=== PATIENT | female | born 1960 | race Caucasian/White ===

== ENCOUNTER 2018-02-28 13:10 | Emergency (ER) | payer OTHER ==
[~2018-02-28] VITALS: Ht 177.8 cm; Wt 93.4 kg
[2018-02-28] MEDS ORDERED: VITAMIN D31000 UNI1 PO (13:22)
[2018-02-28] MEDS ORDERED: ASPIRIN325 M2 PO (13:22)
[2018-02-28] MEDS ORDERED: MULTIVITAMINS1 EAC9 PO (13:22)
[2018-02-28] MEDS ORDERED: CO Q-10400 MG PO (13:22)
--- NOTE | 2018-02-28 13:31 | ED GI/GU/ABDOMINAL COMPLAINT ---
History of Present Illness General Chief Complaint: General Adult Stated Complaint: POSSIBLE KIDNEY STONE W/ PAST HX OF Source: patient, old records Exam Limitations: no limitations Vital Signs & Intake/Output Vital Signs & Intake/Output Vital Signs Date Time Temp Pulse Resp B/P B/P Pulse O2 O2 Flow FiO2 Mean Ox Delivery Rate 02/28 1313 98.2 61 18 142/71 100 Room Air Allergies Coded Allergies: Penicillins (RASH 02/28/18) Reconcile Medications Aspirin (Aspirin*) 325 MG TABLET 1 TAB PO DAILY HEART/BLOOD (Reported) Cholecalciferol (Vitamin D3) (Vitamin D3) (Unknown Strength) CAPSULE (Unknown Dose) PO DAILY SUPPLEMENT (Reported) Ciprofloxacin HCl 500 MG TABLET 1 TAB PO BID UTI Multiple Vitamin (Multivitamins) 1 EACH TABLET 1 TAB PO DAILY SUPPLEMENT ( Reported) Tramadol HCl 50 MG TABLET 1 TAB PO Q6P PRN KIDNEY STONE Ubidecarenone (Co Q-10) 400 MG CAPSULE 1 CAP PO DAILY SUPPLEMENT (Reported) Triage Note: PT STATES SHE THINKS SHE HAS A KIDNEY STONE ON HER LEFT SIDE. PT REPORTS PAIN IN LEFT FLANK THAT RADIATES INTO THE FRONT. PT STATES THE PAIN BEGAN 3 HOURS AGO. PT STATES SHE HAD DYSURIA 4 WEEKS AGO BUT BEGAN TO DRINK CRANBERRY JUICE AND LOTS OF FLUIDS. 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 yes ? N Is pt currently ? No HPI: 57F PMH HLD, recurrent nephrolithiasis requiring lithotrypsy presents with 4 hours of left sided flank pain and left groin pain consistent with prior episodes of nephrolithiasis. Has had a 3 week history of mild dysuria, treated with cranberry juice. She had E.coli urosepsis several months ago. She has vomited once this morning and is nauseous. She has had intermittent chills but no fever. She has dysuria without hematuria. She denies headache, confusion, sore throat, chest pain, SOB, abdominal pain, diarrhea. Past History Travel History Traveled to [place] past 21 day No Medical History Any Pertinent Medical History? see below for history Cardiovascular: PROLAPSE MITRO VALUVE Renal: KIDNEY STONES Surgical History Surgical History: non-contributory Psychosocial History What is your primary language Yoruba Tobacco Use: Never used ETOH Use: denies use Illicit Drug Use: denies illicit drug use Family History Hx Contributory? No Review of Systems Review of Systems Constitutional: Reports: no symptoms. EENTM: Reports: no symptoms. Respiratory: Reports: no symptoms. Cardiovascular: Reports: no symptoms. GI: Reports: no symptoms. Genitourinary: Reports: no symptoms. Musculoskeletal: Reports: no symptoms. Skin: Reports: no symptoms. Neurological/Psychological: Reports: no symptoms. Hematologic/Endocrine: Reports: no symptoms. Immunologic/Allergic: Reports: no symptoms. All Other Systems: Reviewed and Negative Physical Exam Physical Exam General Appearance: well developed/nourished, mild distress Head: atraumatic, normal appearance Eyes: Bilateral: normal appearance. Ears, Nose, Throat, Mouth: hearing grossly normal, moist mucous membrane Neck: normal inspection, supple, full range of motion Respiratory: normal breath sounds, chest non-tender, no respiratory distress Cardiovascular: regular rate/rhythm Gastrointestinal: soft, non-tender Back: normal inspection, normal range of motion Extremities: normal range of motion Neurologic/Psych: awake, alert, oriented x 3, normal mood/affect Skin: intact, normal color, warm/dry Core Measures ACS in differential dx? No Sepsis Present: No Sepsis Focused Exam Completed? No Progress Differential Diagnosis: appendicitis, biliary colic, diverticulitis, ectopic , hernia, kidney stone, ovarian cyst, UTI/pyelo Plan of Care: Orders Procedure Date/time Status CULTURE,URINE 02/28 1322 Active URINALYSIS 02/28 1319 Active COMPREHENSIVE METABOLIC PANEL 02/28 1319 Complete CBC WITHOUT DIFFERENTIAL 02/28 1319 Complete Laboratory Tests 02/28/18 1546: Urine Color Pending, Urine Clarity Pending, Urine pH Pending, Ur Specific [place] Pending, Urine Protein Pending, Urine Ketones Pending, Urine Nitrite Pending, Urine Bilirubin Pending, Urine Urobilinogen Pending, Ur Leukocyte Esterase Pending, Ur Microscopic Pending, Urine Hemoglobin Pending, Urine Glucose Pending 02/28/18 1421: Anion Gap 13, Estimated GFR 57 L, BUN/Creatinine Ratio 19.0, Glucose 109 H, Calcium 10.0, Total Bilirubin 0.3, AST 30, ALT 43, Alkaline Phosphatase 99, Total Protein 6.5, Albumin 3.6, Globulin 2.9, Albumin/Globulin Ratio 1.2, CBC w Diff NO MAN DIFF REQ, RBC 4.51, MCV 91.4, MCH 29.9, MCHC 32.8 L, RDW 13.4, MPV 8.3, Gran % 80.4 H, Lymphocytes % 12.9 L, Monocytes % 5.3, Eosinophils % 1.0, Basophils % 0.4, Absolute Granulocytes 6.0, Absolute Lymphocytes 1.0 L, Absolute Monocytes 0.4, Absolute Eosinophils 0.1, Absolute Basophils 0 Microbiology 02/28 1546 URINE ROUT: Urine Culture - RECD Spoke with Dr. Jonas of urology. Patient will require lithotrypsy, and can be done as outpatient. Patient is exhibiting no signs of sepsis or systemic infection. CT does not show pyelonephritis. Patient lives in [place], has a flight Friday, and would prefer to get the procedure done with her urologist at home. Will discharge on Cipro and Tramadol (patient preference). Diagnostic Imaging: Viewed by Me: CT Scan. Discussed w/RAD: CT Scan. Radiology Impression: PATIENT: ENOCH MEJIA PRESENT AGE: 57 PATIENT ACCOUNT NO: [id number] : 58 LOCATION: [facility] ORDERING PHYSICIAN: Edith Mills MD SERVICE DATE: 02/28/18 EXAM TYPE: CAT - CT ABD & PELVIS W/O IV CONTRAS EXAMINATION: CT ABDOMEN AND PELVIS WITHOUT CONTRAST CLINICAL INFORMATION: Left flank and groin pain with dysuria and chills. COMPARISON: None TECHNIQUE: Multidetector volumetric imaging was performed from the superior aspect of the liver through the pubic symphysis. Sagittal and coronal reformatted images were obtained on the technologist's workstation. DLP: 655.30 mGy-cm FINDINGS: LUNG BASES: Presumed pleural parenchymal scar-related changes are noted within the lingular segment of the left upper lobe. LIVER, GALLBLADDER, AND BILIARY TREE: The liver is normal in size, shape, and attenuation. No focal hepatic lesion or biliary ductal dilatation is present. The gallbladder is unremarkable with no evidence of radiopaque gallstones, gallbladder wall thickening, or obvious pericholecystic inflammatory changes. PANCREAS: Unremarkable. SPLEEN: Unremarkable. ADRENAL GLANDS: Unremarkable. KIDNEYS AND URETERS: There is a 0.6 cm maximum dimension radiopaque calculus identified within the left mid ureter at the level of mid part of L4 vertebral body with Hounsfield value of 223, producing obstruction to the left mid ureter and proximal at least moderate hydroureteronephrosis. There are multiple bilateral nonobstructing radiopaque renal calculi present, measures between 1 to 2 mm on the right, seen at superior, mid and inferior calyces on the right and measures between 2 to 3 mm, at least 3 are present within the inferior calyx on the left. BLADDER: Unremarkable. GASTROINTESTINAL TRACT: The small and large bowel are unremarkable. The appendix is unremarkable. ABDOMINAL WALL: Small fat-containing periumbilical hernia is noted. LYMPH NODES: Normal. VASCULAR: Mild diffuse atherosclerotic disease is noted within the aorta and its branches. PELVIC VISCERA: There is a calcified right adnexal hypodense mass identified, measures approximately 4.7 x 4.3 x 3.5 cm at its maximum anteroposterior by craniocaudal by transverse dimension, not optimally characterized on this nonenhanced study, may represent adnexal, ovarian mass. There is no left-sided adnexal, ovarian mass identified. The uterus is abnormal, enlarged, lobulated, shows multiple solid and partially calcified masses, most consistent with multiple calcified fibroids. There is no free fluid and/or free air identified. OSSEOUS STRUCTURES: Mild diffuse osteopenia without any superimposed discrete focal abnormalities. IMPRESSION: 1. A 0.6 cm maximum dimension solitary radiopaque calculus is seen within the left mid ureter at the level of the mid part of L4 vertebral body, producing at least moderate proximal left-sided hydroureteronephrosis. 2. Additional bilateral multiple nonobstructing renal calculi are also noted. 3. Calcified right adnexal mass is seen measuring 4.7 cm, not optimally characterized, may represent ovarian mass. 4. Abnormal enlarged lobulated, partially calcified uterus, likely represent uterine fibroids. DICTATED BY: Sanford John MD DATE/TIME DICTATED:02/28/181400 HYDROGRAPHIC SURVEYOR:ALVARO DATE/TIME TRANSCRIBED:02/28/181400 CONFIDENTIAL, DO NOT COPY WITHOUT APPROPRIATE AUTHORIZATION. <Electronically signed in Other Vendor System> SIGNED BY: Sanford John MD 02/28/18 1505 Initial ED EKG: none Departure Departure Disposition: HOME OR SELF CARE Condition: Stable Clinical Impression Primary Impression: Nephrolithiasis Secondary Impressions: Hydronephrosis, left Referrals: Mele Hamilton MD Additional Instructions: Drink plenty of water. Take Motrin for mild pain and Tramadol for more severe pain. Do not exceed 300mg of Tramadol in one day as it may cause seizures. If you notice fever, chills, nausea, vomiting, worsening pain, sweating, or any other new or worsening symptoms, return to ER immediately. Departure Forms: Customer Survey General Discharge Information Prescriptions: Current Visit Scripts Ciprofloxacin HCl 1 TAB PO BID #14 TAB Tramadol HCl 1 TAB PO Q6P PRN KIDNEY STONE #30 TAB
[2018-02-28 14:33] LABS: ABSOLUTE BASOPHIL COUNT 0 /CUMM (0.0-0.2); ABSOLUTE EOSINOPHIL COUNT 0.1 /CUMM (0.0-0.7); ABSOLUTE MONOCYTE COUNT 0.4 /CUMM (0.10-0.60); BASOPHIL % 0.4 % (0.0-2.0); GRANULOCYTE % 80.4 % (42.2-75.2); HEMATOCRIT 41.2 % (37-47); MEAN CORPUSCULAR HGB 29.9 PG (27.0-31.0); MEAN CORPUSCULAR HGB CONC 32.8 G/DL (33.0-37.0); MEAN CORPUSCULAR VOLUME 91.4 FL (81.0-99.0); MEAN PLATELET VOLUME 8.3 FL (7.4-10.4); PLATELET COUNT 218 /CUMM (130-400); RBC DISTRIBUTION WIDTH 13.4 % (11.5-14.5); RED BLOOD CELL CT 4.51 /CUMM (4.20-5.40); WHITE BLOOD CELL COUNT 7.4 /CUMM (4.8-10.8)
--- NOTE | 2018-02-28 15:08 | CT SCAN REPORT ---
EXAMINATION: CT ABDOMEN AND PELVIS WITHOUT CONTRAST CLINICAL INFORMATION: Left flank and groin pain with dysuria and chills. COMPARISON: None TECHNIQUE: Multidetector volumetric imaging was performed from the superior aspect of the liver through the pubic symphysis. Sagittal and coronal reformatted images were obtained on the technologist's workstation. DLP: 655.30 mGy-cm FINDINGS: LUNG BASES: Presumed pleural parenchymal scar-related changes are noted within the lingular segment of the left upper lobe. LIVER, GALLBLADDER, AND BILIARY TREE: The liver is normal in size, shape, and attenuation. No focal hepatic lesion or biliary ductal dilatation is present. The gallbladder is unremarkable with no evidence of radiopaque gallstones, gallbladder wall thickening, or obvious pericholecystic inflammatory changes. PANCREAS: Unremarkable. SPLEEN: Unremarkable. ADRENAL GLANDS: Unremarkable. KIDNEYS AND URETERS: There is a 0.6 cm maximum dimension radiopaque calculus identified within the left mid ureter at the level of mid part of L4 vertebral body with Hounsfield value of 223, producing obstruction to the left mid ureter and proximal at least moderate hydroureteronephrosis. There are multiple bilateral nonobstructing radiopaque renal calculi present, measures between 1 to 2 mm on the right, seen at superior, mid and inferior calyces on the right and measures between 2 to 3 mm, at least 3 are present within the inferior calyx on the left. BLADDER: Unremarkable. GASTROINTESTINAL TRACT: The small and large bowel are unremarkable. The appendix is unremarkable. ABDOMINAL WALL: Small fat-containing periumbilical hernia is noted. LYMPH NODES: Normal. VASCULAR: Mild diffuse atherosclerotic disease is noted within the aorta and its branches. PELVIC VISCERA: There is a calcified right adnexal hypodense mass identified, measures approximately 4.7 x 4.3 x 3.5 cm at its maximum anteroposterior by craniocaudal by transverse dimension, not optimally characterized on this nonenhanced study, may represent adnexal, ovarian mass. There is no left-sided adnexal, ovarian mass identified. The uterus is abnormal, enlarged, lobulated, shows multiple solid and partially calcified masses, most consistent with multiple calcified fibroids. There is no free fluid and/or free air identified. OSSEOUS STRUCTURES: Mild diffuse osteopenia without any superimposed discrete focal abnormalities. IMPRESSION: 1. A 0.6 cm maximum dimension solitary radiopaque calculus is seen within the left mid ureter at the level of the mid part of L4 vertebral body, producing at least moderate proximal left-sided hydroureteronephrosis. 2. Additional bilateral multiple nonobstructing renal calculi are also noted. 3. Calcified right adnexal mass is seen measuring 4.7 cm, not optimally characterized, may represent ovarian mass. 4. Abnormal enlarged lobulated, partially calcified uterus, likely represent uterine fibroids.
[2018-02-28] MEDS ORDERED: CIPROFLOXACIN500 M2 PO (15:53)
[2018-02-28] MEDS ORDERED: TRAMADOL HCL50 M1 PO (15:53)
[2018-02-28 16:37] VITALS: BP 134/72
== END 2018-02-28 16:37 ==
LOC: ERH 13:10
PROVIDERS: Internal Medicine
DX: N20.0 Calculus of kidney (principal); N13.30 Unspecified hydronephrosis
CPT/HCPCS: 74176; 81001; 87086; 96374; J1885